=== PATIENT | female | born 1975 | race Caucasian/White ===

== ENCOUNTER → 2018-09-28 | Outpatient (REF) | payer OTHER | LOC: M LAB LCGH 13:13 | PROVIDERS: ATTEND Nurse Practitioner Adult Health | DX: Z12.4 Encounter for screening for malignant neoplasm of cervix (principal) ==

== ENCOUNTER → 2018-10-18 | Outpatient (REF) | payer OTHER | LOC: M LAB LCGH 15:44 | PROVIDERS: ATTEND Obstetrics & Gynecology | DX: N85.00 Endometrial hyperplasia, unspecified (principal) ==

== ENCOUNTER → 2019-01-03 | Outpatient (REF) | payer OTHER | LOC: M LAB LCGH 15:15 | PROVIDERS: ATTEND Obstetrics & Gynecology | DX: R39.82 Chronic bladder pain (principal); C64.9 Malignant neoplasm of unspecified kidney, except renal pelvis ==

== ENCOUNTER → 2020-04-17 | Outpatient (CLI) | payer OTHER | LOC: M LABSMTC 09:42 | PROVIDERS: ATTEND Neurological Surgery | DX: Z01.812 Encounter for preprocedural laboratory examination (principal); Z20.828 Contact with and (suspected) exposure to other viral communicable diseases ==

== ENCOUNTER 2022-01-01 18:52 | Emergency (ER) | payer OTHER ==
[~2022-01-01] VITALS: Ht 162.6 cm; Wt 63.1 kg
[~2022-01-01 18:52] MED LIST: CETI10CA2 PO; FLINCHW14 PO; FLUO-96 PO; HYDR-3363 PO; PRED20TA PO; TRIA1CR80 TOP; ZINC1TAB2 PO
[2022-01-01] MEDS ORDERED: MORPHINE 4 MG/ML 1ML VIAL/SYRINGE IV ONE (20:10)
[2022-01-01] MEDS ORDERED: NS 1,000 ML IV ONE (20:10)
[2022-01-01 20:44] LABS: BASO % 0.3 % (0.0-1.0); EOS # 0.1 10^3/uL (0.0-0.5); EOS % 1.1 % (0.0-3.0); HEMATOCRIT 42.1 % (36.0-47.0); HEMOGLOBIN 13.4 g/dl (12.0-15.5); LYMPH # 1.3 10^3/uL (1.5-5.0); LYMPH % 20.8 % (24.0-44.0); MEAN CORPUSCULAR HEMOGLOBIN 26.7 pg (27.0-33.0); MEAN CORPUSCULAR HGB CONC 31.8 g/dl (32.0-36.5); MONO # 0.4 10^3/uL (0.0-0.8); MONO % 6.2 % (2.0-8.0); NEUTROPHILS # 4.3 10^3/uL (1.5-8.5); NEUTROPHILS % 71.3 % (36.0-66.0); PLATELET COUNT, AUTOMATED 162 10^3/uL (150-450); RED BLOOD COUNT 5.01 10^6/uL (4.00-5.40); WHITE BLOOD COUNT 6.1 10^3/uL (4.0-10.0)
[2022-01-01 21:05] LABS: INR 1.02; PROTHROMBIN TIME 13.8 SECONDS (12.7-14.5)
[2022-01-01 21:06] LABS: PARTIAL THROMBOPLASTIN TIME 35.8 SECONDS (25.9-37.0)
[2022-01-01 21:09] LABS: MB/CK RELATIVE INDEX 1.12 (< OR =4)
[2022-01-01] MEDS ORDERED: fentaNYL 100 MCG/2 ML INJECTION IV PRN (21:25)
[2022-01-01 21:33] LABS: ALBUMIN 3.2 GM/DL (3.2-5.2); ALT/SGPT 23 U/L (12-78); BILIRUBIN,DIRECT < 0.1 MG/DL (0.0-0.2); BILIRUBIN,TOTAL 0.3 MG/DL (0.2-1.0); LIPASE 104 U/L (73-393)
[2022-01-01] MEDS ORDERED: ISOVUE-370 76% 100ML VIAL As Ordered ONE (21:43)
[2022-01-01 22:09] VITALS: BP 145/80
[2022-01-01] MEDS ORDERED: GABA-283 PO (22:58)
[2022-01-02] MEDS ORDERED: HYDROMORPHONE HCL 0.5 MG/ 0.5 ML SYRINGE (J1170 PER 1) IV ONE (00:20)
[2022-01-02 00:21] LABS: RSV AMPLIFICATION NEGATIVE (NEGATIVE)
[2022-01-02 01:04] LABS: MB/CK RELATIVE INDEX 1.32 (< OR =4)
== END 2022-01-02 01:40 | disposition home or self-care (01) ==
LOC: M ED 18:52
DX: R10.13 Epigastric pain (principal); R00.1 Bradycardia, unspecified; C64.9 Malignant neoplasm of unspecified kidney, except renal pelvis; C78.00 Secondary malignant neoplasm of unspecified lung; C79.31 Secondary malignant neoplasm of brain; F41.9 Anxiety disorder, unspecified; F32.A Depression, unspecified; F17.200 Nicotine dependence, unspecified, uncomplicated; F12.20 Cannabis dependence, uncomplicated; F10.10 Alcohol abuse, uncomplicated; Z88.0 Allergy status to penicillin; Z88.1 Allergy status to other antibiotic agents; Z88.2 Allergy status to sulfonamides; Z92.21 Personal history of antineoplastic chemotherapy; Z79.899 Other long term (current) drug therapy
CPT/HCPCS: 71275; 74174; 80047; 80076; 82550; 82553; 83605; 83690; 84484; 85025; 85610; 85730; 87631; 93005; 96361; 96374; 96375; 99284; J1170; J2270; J3010; Q9967